=== PATIENT | male | born 1955 | race Caucasian/White ===

== ENCOUNTER → 2018-01-31 | Outpatient (CLI) | payer BC, OTHER ==
[~2018-01-31] VITALS: Ht 177.8 cm; Wt 76.0 kg
[~2018-01-31] MED LIST: ALEVE220 MG PO; ASPIR 8181 MG PO; DOXAZOSIN MESYLA8 MG PO; FISH OIL 1,001000 M2 PO; FLEXERIL PO; LIPITOR80 MG PO; MOBIC15 MG PO; VITAMIN D3400 UNIT PO
--- NOTE | ~2018-01-31 | HPC ---
[facility] [employer] [place] [address] PAIN MANAGEMENT CONSULTATION Name: JOSIASCOLLETTEANA MARÍA Tin [facility]: [facility] [id number] Admission: 01/31/18 Attend Phys: Balta Anne MD Discharge: Date of : 55 Report #: [id number] THIS REPORT FOR: //name// CC: Cezar Anne DATE OF SERVICE: 01/31/2018 DATE OF REGISTRATION: 01/31/2018 CHIEF COMPLAINT: Low back pain radiating into the left leg. HISTORY OF PRESENT ILLNESS: This is a very pleasant, otherwise healthy 62-year-old gentleman who is here today at the request of Dr. Cezar Fox and also Dr. Suresh Cazares's friend for epidural injection. A few months ago, he began experiencing pain in his low back and his left leg. He is an avid golfer. Found that pain was worse with prolonged standing and walking. Sitting also causes pain if riding in a car. However, when the pain is severe that is what he also does find a comfortable chair or lays flat. He describes it as periodic aching, today it is pretty good about a 1, but it has been limiting his ability to walk and play golf. He is here today at the request consultation from Dr. Mendez's office for an epidural injection. Other treatment modalities have included chiropractic stretch table and he has been doing physical therapy with Femi Shanks which has helped except for a few exercises, which put some strain in his low back. MEDICATIONS: Atorvastatin, cyclobenzaprine, doxazosin, naproxen, cholecalciferol, aspirin, and fish oil. ALLERGIES: TRAMADOL CAUSES NAUSEA. PAST MEDICAL HISTORY: Significant for some cervical arthritis. He has also had some gastritis as well with a history of ulcers. 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 He denies use of tobacco and drinks 3-4 alcoholic beverages on a daily basis. REVIEW OF SYSTEMS: Positive for nocturia, but otherwise negative. PHYSICAL EXAMINATION: He is a pleasant outgoing 62-year-old. His blood pressure 129/81, heart rate 83, respirations 16. He moves easily from sitting to standing position. Gait is normal. Examination of spine reveals normal alignment. He has good forward flexion. Extension reproduces mild discomfort [facility] [address] [place] [address] PAIN MANAGEMENT CONSULTATION Name: ANA MARÍA KENNEY Room #: REG CL [facility]#: [id number] Admission: 01/31/18 Attend Phys: Balta Anne MD Discharge: Date of : 55 Report #: [id number] consistent with spondylosis. Straight leg raising is mildly positive in the sitting position and supine position, radiating pain into the left anterior lateral thigh in the L4 distribution. Sensation is intact. No focal weakness is noted. MRI was ordered by the chiropractor and unfortunately it does not include images available of the spine, but it does show that there is some bilateral hip osteoarthritic or degenerative changes and possible labral abnormalities. The changes in the left hip are described as moderate. 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 Fox and others. This is contralateral to his pains symptoms. IMPRESSION: Lumbar radiculopathy. I recommend that we perform an epidural steroid injection. L3-L4, L4-L5 distribution should cover the area of pain. Potential risks and benefits of procedure explained in detail, he would like to proceed. He was taken to fluoroscopic suite, placed prone, skin prepped with ChloraPrep. Skin anesthetized over L4-L5. A 20-gauge Tuohy epidural needle advanced first attempt in the epidural space with loss of resistance technique. There was no blood or CSF aspirated. 1 mL of Omnipaque injected. Good spread of dye observed in the epidural space followed by 3 mL of 0.5% lidocaine mixed with 80 mg of triamcinolone. He tolerated the procedure well and was observed for 45 minutes and discharged. Followup visit planned in 1 month. By: 1227 09 Balta Anne MD /nt
[2018-01-31 08:13] VITALS: BP 124/81
== END | disposition home or self-care (01) ==
LOC: PAIN 06:51
DX: M54.16 Radiculopathy, lumbar region (principal); G89.29 Other chronic pain; M19.90 Unspecified osteoarthritis, unspecified site; Z87.19 Personal history of other diseases of the digestive system; Z88.8 Allergy status to other drugs, medicaments and biological substances; Z79.899 Other long term (current) drug therapy; Z79.82 Long term (current) use of aspirin; Z87.442 Personal history of urinary calculi

== ENCOUNTER → 2018-03-13 | Outpatient (CLI) | payer BC, OTHER ==
[~2018-03-13] VITALS: Ht 177.8 cm; Wt 74.8 kg
[~2018-03-13] MED LIST changes: +MEDROLDOSEPACK PO
--- NOTE | ~2018-03-13 | HPC ---
[facility] [address] [place] [address] PAIN MANAGEMENT CONSULTATION Name: JOSIASCOLLETTEANA MARÍA Tin Room #: REG [facility]#: [id number] Admission: 03/13/18 Attend Phys: Rebekah Sandhu MD Discharge: Date of : 55 Report #: [id number] THIS REPORT FOR: //name// CC: Cezar Sandhu DATE OF SERVICE: 03/13/2018 CHIEF COMPLAINT: Back and left thigh pain. HISTORY OF PRESENT ILLNESS: The patient is a 62-year-old gentleman who has been referred to the pain clinic for evaluation. The patient has pain and discomfort involving his low back and left leg. Pain has been problematic since 10/2017. It is worse when he is driving. Describes it as an aching sensation. Pain rises to the level of a 9 when he is walking. Standing is problematic as well. Notes his pain improves somewhat when he sits down. The patient has undergone physical therapy x2 weeks. Describes it is periodic, aching, burning discomfort. At this juncture, the pain has become more problematic and he would like to proceed with treatment. ALLERGIES: TRAMADOL, CHLORZOXAZONE. CURRENT MEDICATIONS: The patient has tried a Medrol Dosepak, aspirin 81 mg, fish oil 1000 mg, vitamin D3 400 units, Naprosyn 220 mg q.12h, doxazosin 8 mg, Flexeril 10 mg t.i.d., Lipitor 80 mg. PAST MEDICAL HISTORY: Joint disease/arthritis, ulcers. History of cervical radiculopathy. PAST SURGICAL HISTORY: Surgery 01/25/2013. Pilonidal cyst excision. SOCIAL HISTORY: He is retired, has not worked for the last 2 years. REVIEW OF SYSTEMS: Generally good health. Awakens to urinate, incontinence, dribbling, kidney stones 01/30/2017, numbness and tingling sensation. LABORATORY DATA: MR of the pelvis without contrast dated 01/17/2018. Impression: 1. Hyperintense appearance of the right iliac interosseous lesion along with the corticated non aggressive appearance on radiograph are most suggestive of benign hemangioma. 2. Prostate enlargement. Bilateral hip osteoarthritic or degenerative changes with possible labral abnormalities. PAIN CLINIC ASSESSMENT: 1. History of osteoarthritis joints. 2. Height 5 feet 10 inches. Weight 165 pounds, BMI is 23.7. [place] [address] PAIN MANAGEMENT CONSULTATION Name: JOSIASCOLLETTEANA MARÍA Tin Room #: REG [facility]#: [id number] Admission: 03/13/18 Attend Phys: Rebekah Sandhu MD Discharge: Date of : 55 Report #: [id number] 3. Vital signs: Blood pressure 144/83, pulse 81, respiratory rate 14, room air saturation 99%. 4. Pain intensity 9/10 with walking. 5. Fall risk. The patient has not fallen in the last 3 months. 6. Low blood thinner. The patient is not on a blood thinning medication. 7. History of hypertension. The patient has not been treated for hypertension. 8. Opioid therapy greater than 6 weeks. The patient is not on an opioid contract. 9. Risk assessment tool, this is low. 10. Functional assessment tool . 11. Recreational drug use. The patient denies use of recreational drugs. 12. Tobacco: The patient has never smoked. 13. Alcohol. The patient drinks 6 per day. IMPRESSION: 1. Pain in the L5 distribution on the left side. 2. Claudication. 3. History of right arm pain in the past. 4. Hypercholesterolemia. 5. Urinary frequency. 6. History of cervical radiculopathy. 7. Degenerative joint disease. 8. History of knee arthroscopy, left. RECOMMENDATIONS: We discussed treatment options with the patient. He continues to have pain and discomfort, which he describes radiating down the L4-L5 distribution of his left leg. Possible complications of an epidural steroid injection were again reviewed. They include but are not limited to infection, increased muscle soreness, headache, bleeding, worsening of pain, no improvement in pain, paralysis. The patient elects to proceed. We let the patient to the procedure room. He was assisted in getting on the examination table. His back was sterilely prepped with a Betadine solution. A bolster was placed under his abdomen to improve positioning. His back was sterilely prepped with a Betadine solution. Fluoroscopy using anterior, posterior as well as lateral viewing were used to place the appropriate injection. At the left paraspinous area of 0.25% bupivacaine was infiltrated. A 17-gauge Tuohy with loss of resistance technique was used to gain access to the epidural space. There was no CSF, heme or paresthesia. Total of 7 seconds fluoroscopy time was used. A total of 80 mg Depo-Medrol, 40 mg triamcinolone and 2 mL of 0.25% bupivacaine was injected. The patient's pain decreased from 9 to 1 at the time of discharge. He will follow up in the future as needed. We would like to thank you for letting us participate in his care. We hope he continues to improve. By: [id number] Rebekah Sandhu MD /nt
[2018-03-13 09:15] VITALS: BP 144/83
== END | disposition home or self-care (01) ==
LOC: PAIN 06:34
DX: M54.16 Radiculopathy, lumbar region (principal); E78.00 Pure hypercholesterolemia, unspecified; M19.90 Unspecified osteoarthritis, unspecified site; Z98.890 Other specified postprocedural states; Z79.899 Other long term (current) drug therapy; G89.29 Other chronic pain; Z87.442 Personal history of urinary calculi; Z88.8 Allergy status to other drugs, medicaments and biological substances

== ENCOUNTER → 2018-10-31 | Outpatient (CLI) | payer BC, OTHER ==
[~2018-10-31] VITALS: Ht 177.8 cm; Wt 78.5 kg
[2018-10-31 09:07] VITALS: BP 141/85
--- NOTE | 2018-10-31 09:11 | NUR ---
Pain Clinic Assessment: 1. History of Osteoarthritis: joints History of Rheumatoid Arthritis: Not Applicable 2. Height: 5 ft. 10 in. 177.8 cm. Weight: 173.0 lb. oz. 78.472 kg. Patient's BMI: 24.8 3. Vital Signs: BP: 141/85 Pulse: 69 Resp: 14 Temp: 02 Sat: 99 ECG Mon: 4. Pain Intensity: 0.5 TODAY 5. Fall Risk: Dizziness: N Needs help standing or walking: N Fallen in the last 3 months: N Fall risk comments: 6. Patient on Blood Thinner: None 7. History of Hypertension: N 8. Opioid Therapy greater than 6 weeks: N Opiate Contract Signed: 9. Risk Assessment Tool Provided: LOW 10. Functional Assessment Tool: 11. Recreational Drug Use: Never Drug Type: Tobacco Use: Never Smoker Tobacco Type: Amount or Packs/day: How Many Years: Alcohol Use: Yes Frequency: Quant:
--- NOTE | 2018-11-06 15:29 | HPC ---
[facility] [address] [place] [address] PAIN MANAGEMENT CONSULTATION Name: JOSIASCOLLETTEANA MARÍA Tin Room #: REG [facility].#: [id number] Admission: 10/31/18 ������������������ Attend Phys: Balta Anne MD Discharge: ������������������ Date of : 55 Report #: [id number] THIS REPORT FOR: //name// CC: Cezar Anne DATE OF SERVICE: 10/31/2018 Followup visit for lumbar spondylosis. The patient returns to pain clinic today for facet injections. He had excellent response to facet injections at L3-L4, L4-L5 and L5-S1 performed on 03/28/2018 with many months of good pain relief. He recently increased his pain with some exercise, activities. He was using a recumbent bicycle. We discussed the exacerbation that may occur with back extension and he will avoid that exercise in the future. He notices now that he has increased pain with prolonged driving. He describes an aching periodic pain, intensity can be as high as a 9 when he is walking. He gets relief with sitting. MEDICATIONS: None for pain. ALLERGIES: TRAMADOL. PHYSICAL EXAMINATION: He is a very fit appearing 63-year-old. Blood pressure is 141/85, heart rate 69, respirations 14, BMI is 24.8. He is able to independently move from sitting to standing position. Moves without too much difficulty. Forward flexion and extension are performed without too much difficulty. Extension does exacerbate his pain slightly. Mild tenderness is noted along the right side of the lumbar spine. X-rays are reviewed once again demonstrating multilevel degenerative spondylosis. There are some small lateral disk protrusions, but the prominent issue appears to be bilateral facet arthropathy, which is present at L3-L4, L4-L5 and L5-S1. PLAN: Although radiofrequency is certainly an endpoint for treatment in some patients. Given his long response to simple low cortisone injection that takes 5 minutes, I would recommend that we proceed with that treatment again today. Potential risks and benefits reviewed and he would like to proceed. IMPRESSION: Lumbar spondylosis. PROCEDURE: Right L3-L4, L4-L5 and L5-S1 facet injections under fluoroscopic guidance. [facility] [address] [place] [address] PAIN MANAGEMENT CONSULTATION Name: ANA MARÍA KENNEY Room #: REG CL [facility]#: [id number] Admission: 10/31/18 ������������������ Attend Phys: Balta Anne MD Discharge: ������������������ Date of : 55 Report #: [id number] DESCRIPTION OF PROCEDURE: He was taken to fluoroscopic suite, placed prone, skin prepped with ChloraPrep. Skin anesthetized first over the L3-L4, then the L4, then the L5-S1 facet joint. The 25-gauge needles were gently advanced into the posterior inferior recess of the facet joint. After negative aspiration, I gently injected 1 mL of 0.5% bupivacaine containing 15 mg of triamcinolone into each joint. He tolerated the procedure well. He was observed for a short time in the recovery room and discharged. Pain score is 0. Follow up as needed. No medications were ordered. ��������������������������������������������� <ELECTRONICALLY SIGNED> ���������������������������������������� By: Balta Anne MD ��������������������������������������������� 11/06/18 1529 1453 1511 Balta Anne MD /nt
== END | disposition home or self-care (01) ==
LOC: PAIN 06:42
DX: M47.816 Spondylosis without myelopathy or radiculopathy, lumbar region (principal); Z88.8 Allergy status to other drugs, medicaments and biological substances

== ENCOUNTER → 2019-01-16 | Outpatient (CLI) | payer BC, OTHER ==
[~2019-01-16] VITALS: Ht 177.8 cm; Wt 74.8 kg
[~2019-01-16] MED LIST changes: +CELEBREX 200 M200 MG PO
--- NOTE | ~2019-01-16 | HPC ---
[facility] [address] [place] [address] PAIN MANAGEMENT CONSULTATION Name: ANA MARÍA KENNEY Room #: REG [facility] Champ.#: [id number] Admission: 01/16/19 ������������������ Attend Phys: Balta Anne MD Discharge: ������������������ Date of : 55 Report #: [id number] THIS REPORT FOR: //name// CC: GAYLA Anne DATE OF SERVICE: 01/16/2019 Followup visit for lumbar spondylosis. The patient is in the pain clinic today for about a 20-minute consultation regarding his low back pain. He remains active, golfing and is on his feet a fair amount. The pain is worse when he is gardening or doing other activities. He scores his overall pain, however, at 3/10. Facet injections seemed to help, the last set of injections were helpful, but the pain returned fairly quickly to a similar level. There is no question that the injections reduce his pain, so I think there is certainly a diagnostic component there. He denies radiculopathy. PHYSICAL EXAMINATION: He is a fit-appearing 63-year-old. He moves from sitting to standing position, ambulates without too much difficulty. Blood pressure 122/80, heart rate 74, respirations 14. His BMI is 23.7. He has pain in his back with back extension without radiation. Localized tenderness across the lumbosacral segment. IMPRESSION: Lumbar spondylosis. RECOMMENDATIONS: 1. We could take him off meloxicam and try him on Celebrex. Sometimes nonsteroidal anti-inflammatory drug rotation is helpful. 2. Consider nonpharmacologic measures including exercise, soft tissue massage for benefit. 3. We can repeat the injections, although medial branch nerve blocks might provide some indication whether or not he respond to radiofrequency. I spent the rest of visit today discussing radiofrequency pros, cons and its success rate. He does have excellent landmarks for the procedure, and I think that if he responded well to diagnostic blocks, then we could go over to radiofrequency with likely good benefit. I would suggest that we denervate the L3-L4, L4-L5 and L5-S1 joints bilaterally, which would necessitate for medial branch nerve [facility] [address] [place] [address] PAIN MANAGEMENT CONSULTATION Name: ANA MARÍA KENNEY Room #: REG [facility].#: [id number] Admission: 01/16/19 ������������������ Attend Phys: Balta Anne MD Discharge: ������������������ Date of : 55 Report #: [id number] treatments on each side. We will consider these options after a trial of Celebrex for 1 month. ��������������������������������������������� ���������������������������������������� By: ��������������������������������������������� 1840 1311 Balta Anne MD /nt
[2019-01-16 10:47] VITALS: BP 122/80
--- NOTE | 2019-01-16 10:48 | NUR ---
Pain Clinic Assessment: 1. History of Osteoarthritis: FINGERS SPINE History of Rheumatoid Arthritis: Not Applicable 2. Height: 5 ft. 10 in. 177.8 cm. Weight: 165.0 lb. oz. 74.844 kg. Patient's BMI: 23.7 3. Vital Signs: BP: 122/80 Pulse: 74 Resp: 14 Temp: 02 Sat: 95 ECG Mon: 4. Pain Intensity: 3 5. Fall Risk: Dizziness: N Needs help standing or walking: N Fallen in the last 3 months: N Fall risk comments: 6. Patient on Blood Thinner: None 7. History of Hypertension: N 8. Opioid Therapy greater than 6 weeks: N Opiate Contract Signed: 9. Risk Assessment Tool Provided: LOW 10. Functional Assessment Tool: 11. Recreational Drug Use: Never Drug Type: Tobacco Use: Never Smoker Tobacco Type: Amount or Packs/day: How Many Years: Alcohol Use: Yes Frequency: Daily Quant: 6 BEERS A DAY
== END ==
LOC: PAIN 06:56
DX: M47.816 Spondylosis without myelopathy or radiculopathy, lumbar region (principal); Z79.899 Other long term (current) drug therapy

== ENCOUNTER → 2019-02-03 | Outpatient (CLI) | payer BC, OTHER ==
[~2019-02-03] VITALS: Ht 177.8 cm; Wt 74.1 kg
[2019-02-03 10:32] VITALS: BP 137/83
--- NOTE | 2019-02-03 10:42 | NUR ---
Pain Clinic Assessment: 1. History of Osteoarthritis: FINGERS SPINE History of Rheumatoid Arthritis: Not Applicable 2. Height: 5 ft. 10 in. 177.8 cm. Weight: 163.4 lb. oz. 74.118 kg. Patient's BMI: 23.4 3. Vital Signs: BP: 137/83 Pulse: 64 Resp: 14 Temp: 02 Sat: 100 ECG Mon: 4. Pain Intensity: 2 5. Fall Risk: Dizziness: N Needs help standing or walking: N Fallen in the last 3 months: N Fall risk comments: 6. Patient on Blood Thinner: None 7. History of Hypertension: N 8. Opioid Therapy greater than 6 weeks: N Opiate Contract Signed: 9. Risk Assessment Tool Provided: LOW 10. Functional Assessment Tool: 11. Recreational Drug Use: Never Drug Type: Tobacco Use: Never Smoker Tobacco Type: Amount or Packs/day: How Many Years: Alcohol Use: Yes Frequency: Quant:
--- NOTE | 2019-02-11 17:25 | HPC ---
[facility] [address] [place] [address] PAIN MANAGEMENT CONSULTATION Name: JOSIASCOLLETTEANA MARÍA Tin Room #: REG [facility] Champ.#: [id number] Admission: 02/03/19 ������������������ Attend Phys: Balta Anne MD Discharge: ������������������ Date of : 55 Report #: [id number] THIS REPORT FOR: //name// CC: Cezar Anne DATE OF SERVICE: 02/03/2019 Followup visit for lumbar spondylosis, low back pain. The patient returns to the pain clinic today and we had a lengthy discussion today about the pros and cons of radiofrequency ablation. He has decided that he wants to go forward with diagnostic injections and if he meets criteria, then to have RF. I reviewed his films once again. He has bilateral facet arthropathy at L4-L5 and bilateral facet arthropathy at L5-S1. There is minimal, but some degenerative disease as well above, but appears that the most prominent degenerative changes are at the lowest 2 levels. This would require medial branch denervation of L3-L4 and denervation of the L5 dorsal ramus bilaterally to provide relief. Using a model and diagrams, I have showed him how this process would take place. He is anxious for alternatives. His pain is modest, I have reminded him He is able to play golf, but has bilateral pain following his activities. Much of this is normal, but it is enough that it is bothering him to be in my office. PQRS REVIEW: PQRS review completed. 1. He does have some osteoarthritis of course of the spine, as discussed and he complains of some arthritic changes in his hands. 2. He is fit and lean, with a BMI of 23.4. 3. Blood pressure 137/83, heart rate 64, respirations 14 and O2 sat 100. 4. Pain intensity today is 2. With aggravating activities, he can increase this pain to an 8. 5. He is not a fall risk. 6. No blood thinners. 7. No hypertension. 8. He is not on an opioid agreement. 9. He has completed an opioid risk tool and would consider at low risk. 10. His functional assessment score is 2/70! 11. He denies use of tobacco, drinks alcohol socially. PHYSICAL EXAMINATION: He has mild pain with back extension. He has good flexion without discomfort. Some rotational moves such as those that he performs with golf cause pain across the lumbosacral segment. IMPRESSION: Lumbar spondylosis. [facility] [address] [place] [address] PAIN MANAGEMENT CONSULTATION Name: ANA MARÍA KENNEY Room #: REG [facility]#: [id number] Admission: 02/03/19 ������������������ Attend Phys: Balta Anne MD Discharge: ������������������ Date of : 55 Report #: [id number] RECOMMENDATIONS: 1. We have tried nonsteroidal anti-inflammatory drugs which have not been considered helpful to him to the degree that he had hoped for. 2. He will continue with regular exercise as mentioned for benefits established in the treatment of spondylosis. 3. We will proceed today with medial branch nerve blocks L3-L4 bilaterally and L5 dorsal ramus and move forward depending on response. PROCEDURE: After informed consent, he was taken to the fluoroscopic suite, placed prone and skin prepped with ChloraPrep. Skin anesthetized first on the left. I identified the targets for the medial branch of L3 on the L4 transverse process, L4 on the L5 transverse process and the L5 dorsal ramus at the sacral ala. Skin was anesthetized with 0.25 mL of 1% lidocaine and 25-gauge needles were advanced into position at each location. After negative aspiration, I injected 0.5 mL of 0.5% bupivacaine at each location. [place] were removed. C-arm was then moved to the right and mirror image injections were performed on the right at the same targets with same injectate. He tolerated the procedure well. There were no complications. I received a phone call from him the following day. For the first 3 hours during his trial, he was actively attempting to reproduce pain and scored his pain as a 1/10. By the fourth hour, his pain was a 3-4. I would like to go forward with the second set of diagnostic injections and if similar response, we will proceed with radiofrequency ablation. ��������������������������������������������� <ELECTRONICALLY SIGNED> ���������������������������������������� By: Balta Anne MD ��������������������������������������������� 02/11/19 1725 1217 1311 Balta Anne MD /nt
== END | disposition home or self-care (01) ==
LOC: PAIN 06:46
DX: M47.816 Spondylosis without myelopathy or radiculopathy, lumbar region (principal); M19.90 Unspecified osteoarthritis, unspecified site; Z98.890 Other specified postprocedural states; Z79.899 Other long term (current) drug therapy; Z79.82 Long term (current) use of aspirin

== ENCOUNTER → 2019-02-27 | Outpatient (CLI) | payer BC, OTHER ==
[~2019-02-27] VITALS: Ht 177.8 cm; Wt 75.8 kg
--- NOTE | ~2019-02-27 | HPC ---
[facility] [place] [address] PAIN MANAGEMENT CONSULTATION Name: ANA MARÍA KENNEY Room #: REG [facility].#: [id number] Admission: 02/27/19 ������������������ Attend Phys: Balta Anne MD Discharge: ������������������ Date of : 55 Report #: [id number] THIS REPORT FOR: //name// CC: Cezar Anne DATE OF SERVICE: 02/27/2019 Followup visit for lumbar spondylosis. The patient returns to pain clinic today for a second medial branch nerve block. He responded favorably to his first treatment. Treatment performed on 02/03/2019 provided hours of good pain relief. He went home immediately after the procedure and attempted to reproduce the pain as he normally does. For 4 hours, his pain was well managed. We will repeat the procedure today and then go forward with radiofrequency ablation of the L3-L4 medial branch nerves along with the L5 dorsal ramus bilaterally. PHYSICAL EXAMINATION: NEUROLOGIC: Pleasant gentleman, moves from sitting to standing position, walks without an antalgic features. Pain with back extension reproduces some discomfort, but typically his pain is zero unless it is aggravated by activity. VITAL SIGNS: Blood pressure 138/70, heart rate 80, and respirations 14. IMPRESSION: Lumbar spondylosis. PROCEDURE: Medial branch nerve blocks, bilateral L3-L4 and dorsal ramus L5. After informed consent, he was taken to the fluoroscopic suite, placed prone, skin prepped with ChloraPrep in the left. Using biplanar fluoroscopic views, I carefully advanced 25-gauge needle into position on the transverse process at the base of the superior articulating facet medially at L4-L5 and at the sacral ala. This corresponds to the L3-L4 medial branch and the L5 dorsal ramus. After negative aspiration, I injected 0.75 mL of bupivacaine 0.5%. [place] were removed. The procedure was repeated on the right using a similar technique. He tolerated the procedure well. There were no complications. He was taken to recovery room with a pain score of 0. Followup visit is planned for radiofrequency after he returns from a trip to [place] pending the results of this diagnostic test. If he does not feel that provide the expected relief, I [facility] [address] [place] [address] PAIN MANAGEMENT CONSULTATION Name: ANA MARÍA KENNEY Room #: REG [facility].#: [id number] Admission: 02/27/19 ������������������ Attend Phys: Balta Anne MD Discharge: ������������������ Date of : 55 Report #: [id number] have asked him to cancel the appointment for radiofrequency and we will discuss further treatments. ��������������������������������������������� ���������������������������������������� By: ��������������������������������������������� [id number] Balta Anne MD /nt
[2019-02-27 13:16] VITALS: BP 138/70
--- NOTE | 2019-02-27 13:40 | NUR ---
Pain Clinic Assessment: 1. History of Osteoarthritis: FINGERS SPINE History of Rheumatoid Arthritis: Not Applicable 2. Height: 5 ft. 10 in. 177.8 cm. Weight: 167.2 lb. oz. 75.841 kg. Patient's BMI: 24.0 3. Vital Signs: BP: 138/70 Pulse: 80 Resp: 14 Temp: 02 Sat: 98 ECG Mon: 4. Pain Intensity: 0 5. Fall Risk: Dizziness: N Needs help standing or walking: N Fallen in the last 3 months: N Fall risk comments: 6. Patient on Blood Thinner: None 7. History of Hypertension: N 8. Opioid Therapy greater than 6 weeks: N Opiate Contract Signed: 9. Risk Assessment Tool Provided: LOW 10. Functional Assessment Tool: 11. Recreational Drug Use: Never Drug Type: Tobacco Use: Never Smoker Tobacco Type: Amount or Packs/day: How Many Years: Alcohol Use: Yes Frequency: Quant:
== END | disposition home or self-care (01) ==
LOC: PAIN 12:59
DX: M47.816 Spondylosis without myelopathy or radiculopathy, lumbar region (principal); G89.29 Other chronic pain; Z88.8 Allergy status to other drugs, medicaments and biological substances; Z98.890 Other specified postprocedural states; Z79.82 Long term (current) use of aspirin; Z79.899 Other long term (current) drug therapy

== ENCOUNTER → 2019-04-01 | Outpatient (CLI) | payer BC, OTHER ==
[~2019-04-01] VITALS: Ht 177.8 cm; Wt 74.8 kg
--- NOTE | ~2019-04-01 | HPC ---
[facility] [place] [address] PAIN MANAGEMENT CONSULTATION Name: ANA MARÍA KENNEY Room #: [facility].#: [id number] Admission: 04/01/19 Attend Phys: Balta Anne MD Discharge: Date of : 55 Report #: [id number] THIS REPORT FOR: //name// CC: GAYLA Anne DATE OF SERVICE: 04/01/2019 Followup visit for radiofrequency neural ablation, bilateral L3-L4 medial branch nerve and bilateral L5 dorsal ramus. INDICATIONS FOR PROCEDURE: The patient has had 2 successful diagnostic injections. He has had substantial relief with local anesthetic provided to the above-mentioned nerves. He is here today for definitive therapy and radiofrequency neural lesioning. We have discussed the procedure, risks and benefits and potential for success on multiple visits. He is anxious to proceed. PROCEDURE: Bilateral radiofrequency neural lesioning, medial branch nerve L3-L4 and bilateral dorsal ramus, L5. After informed consent, he was taken to the fluoroscopic suite. He was placed in the prone position. Skin was prepped with ChloraPrep. The skin was carefully draped. We began on the left. Skin was anesthetized over the entry points targeting the medial branch nerve L3 on the L4 transverse process and the medial branch of L4 on the L5 transverse process. [place] were carefully advanced into position resting at the junction of the transverse process and the superior articulating process. The C-arm was then moved to an AP projection and final needle was advanced and positioned with the tip resting at the sacral ala overlying the L5 dorsal ramus. [place] was removed and the probe placed in each needle. Sensory and motor testing was performed. Outstanding responses were achieved with close proximity of the active tip judged by sensory responses at 0.2 at each needle. There was no motor response at 2 Hz. The probe was then removed and 1 mL of lidocaine 1% was injected through each needle. The probes were replaced. After 90 seconds, we performed simultaneous lesioning at 80 degrees for 90 seconds. The probe was removed and I injected 0.5 mL of 0.5% bupivacaine mixed with 10 mg of triamcinolone through each needle. The needles were removed. The patient was allowed to reposition a little and the C-arm was moved to the right. The procedure was repeated on the right using the same technique at each level. Lesions once again were performed using the same technique with outstanding sensory responses obtained at each needle at 0.2. There was no motor response. I lesioned the L3-L4 medial branch nerve and the L5 dorsal ramus in a similar fashion for 90 seconds at 80 degrees. Probe removed and injections through each needle of 0.5 mL of 0.5% bupivacaine mixed with 10 mg of triamcinolone. [place] were removed. He was taken to recovery [address] [address] PAIN MANAGEMENT CONSULTATION Name: ANA MARÍA KENNEY Room #: REG [facility]#: [id number] Admission: 04/01/19 Attend Phys: Balta Anne MD Discharge: Date of : 55 Report #: [id number] room in good condition. There were no complications. Followup visit is planned by phone and instructions were provided at discharge. By: [id number] Balta Anne MD /nt
[2019-04-01 08:07] VITALS: BP 129/75
--- NOTE | 2019-04-01 08:11 | NUR ---
Pain Clinic Assessment: 1. History of Osteoarthritis: FINGERS SPINE History of Rheumatoid Arthritis: Not Applicable 2. Height: 5 ft. 10 in. 177.8 cm. Weight: 165.0 lb. oz. 74.844 kg. Patient's BMI: 23.7 3. Vital Signs: BP: 129/75 Pulse: 71 Resp: 16 Temp: 02 Sat: 96 ECG Mon: 4. Pain Intensity: 0 5. Fall Risk: Dizziness: N Needs help standing or walking: N Fallen in the last 3 months: N Fall risk comments: 6. Patient on Blood Thinner: None 7. History of Hypertension: N 8. Opioid Therapy greater than 6 weeks: N Opiate Contract Signed: 9. Risk Assessment Tool Provided: LOW 10. Functional Assessment Tool: 11. Recreational Drug Use: Never Drug Type: Tobacco Use: Never Smoker Tobacco Type: Amount or Packs/day: How Many Years: Alcohol Use: Yes Frequency: Quant: Pain Clinic Assessment: 1. History of Osteoarthritis: FINGERS SPINE History of Rheumatoid Arthritis: Not Applicable 2. Height: 5 ft. 10 in. 177.8 cm. Weight: 165.0 lb. oz. 74.844 kg. Patient's BMI: 23.7 3. Vital Signs: BP: 129/75 Pulse: 71 Resp: 16 Temp: 02 Sat: 96 ECG Mon: 4. Pain Intensity: 0 5. Fall Risk: Dizziness: N Needs help standing or walking: N Fallen in the last 3 months: N Fall risk comments: 6. Patient on Blood Thinner: None 7. History of Hypertension: N 8. Opioid Therapy greater than 6 weeks: N Opiate Contract Signed: 9. Risk Assessment Tool Provided: LOW 10. Functional Assessment Tool: 11. Recreational Drug Use: Never Drug Type: Tobacco Use: Never Smoker Tobacco Type: Amount or Packs/day: How Many Years: Alcohol Use: Yes Frequency: Quant:
== END | disposition home or self-care (01) ==
LOC: PAIN 06:43
DX: M47.816 Spondylosis without myelopathy or radiculopathy, lumbar region (principal); G89.29 Other chronic pain; Z88.8 Allergy status to other drugs, medicaments and biological substances; Z79.82 Long term (current) use of aspirin; Z79.899 Other long term (current) drug therapy